=== PATIENT | female | born 1990 | race American Indian/Alaskan Native ===

== ENCOUNTER 2020-03-04 09:26 | Emergency (ER) | payer MEDICAID ==
[2020-03-04 09:33] VITALS: BP 122/70
[2020-03-04 10:14] LABS: Basophils % (Auto) 0.5 % (0.0-1.8); Eosinophils # (Auto) 0.1 K/mm3 (0.0-0.4); Eosinophils % (Auto) 1.5 % (0.0-4.3); Hematocrit 36.2 % (30.3-42.9); Hemoglobin 11.7 gm/dl (10.1-14.3); Lymphocytes # (Auto) 2.1 K/mm3 (1.2-5.4); Lymphocytes % (Auto) 35.8 % (13.4-35.0); Mean Corpuscular HGB Conc 32 % (30-34); Mean Corpuscular Volume 84 fl (79-97); Monocytes # (Auto) 0.5 K/mm3 (0.0-0.8); Monocytes % (Auto) 7.8 % (0.0-7.3); Platelet Count 285 K/mm3 (140-440); Red Blood Count 4.34 M/mm3 (3.65-5.03); Red Cell Distribution Width 16.3 % (13.2-15.2)
[2020-03-04 10:37] LABS: Bilirubin,Urine NEG (Negative); Blood,Urine NEG (Negative); Color,Urine Yellow (Yellow); Mucus,Urine 2+ /HPF; Protein,Urine <15 mg/dL mg/dL (Negative); Urobilinogen,Urine < 2.0 mg/dL (<2.0)
[2020-03-04 10:38] LABS: WBC,Urine < 1.0 /HPF (0.0-6.0)
--- NOTE | 2020-03-04 11:38 | Ultrasound Report ---
US OB <= 14 weeks fetus, US OB transvaginal INDICATION / CLINICAL INFORMATION: Vaginal bleeding pain. COMPARISON: None available. FINDINGS: Transabdominal and transvaginal imaging was performed. Uterus measures 9.2 x 4.9 x 5.1 cm. There is a tiny anechoic focus, likely a gestational sac, in the endometrial cavity with mean diameter of 3.1 cm (5 weeks, 0 days). No pole or yolk sac is seen. Right ovary is unremarkable. There is a mildly complex 2.2 cm left ovarian lesion. This could be a co rpus luteal cyst. No adnexal lesions are seen. No free fluid is seen. IMPRESSION: 1. Small fluid collection within the endometrial cavity could be an early gestational sac. No yolk sa c or pole is identified. No adnexal lesions are seen. Correlation with serial beta hCG levels a nd short-term follow-up is recommended. Signer Name: Zachary Almaraz MD Signed: 03/04/2020 11:33 AM Workstation Name: [id number]
--- NOTE | 2020-03-04 12:20 | Emergency Department Report ---
ED Female HPI - General Chief complaint: Vaginal Bleeding Stated complaint: 10WKS PREG, BLEEDING Time Seen by Provider: 03/04/20 10:45 Source: patient Mode of arrival: Ambulatory Limitations: No Limitations - History of Present Illness Initial comments: 21-year-old G3, P2 female presents emergency department complaining of vaginal bleeding that started this morning while at work around 6:30 AM after lifting some heavy items. States she had a positive home test sometime ago and not had a period since sometime in January and she is also not yet seen an [facility] but wanted to be evaluated to ensure that her was in good health. She reports having some pelvic cramping which radiates to her back as well she is only utilize 1 pad today today reports no chest pain no shortness of breath no fever chills or sweats. No direct abdominal trauma MD Complaint: vaginal bleeding, pelvic pain -: Gradual - Related Data Allergies Allergy/AdvReac Type Severity Reaction Status Date / Time No Known Allergies Allergy Verified 03/04/20 09:29 ED Review of Systems ROS: Stated complaint: 10WKS PREG, BLEEDING Other details as noted in HPI Comment: All other systems reviewed and negative ED Past Medical Hx - Past Medical History Previous Medical History?: No - Surgical History Past Surgical History?: No - Social History Smoking Status: Never Smoker Substance Use Type: None ED Physical Exam - General Limitations: No Limitations General appearance: alert, in no apparent distress - Head Head exam: Present: atraumatic, normocephalic - Eye Eye exam: Present: normal appearance - ENT ENT exam: Present: mucous membranes moist - Neck Neck exam: Present: normal inspection - Respiratory Respiratory exam: Present: normal lung sounds bilaterally. Absent: respiratory distress, wheezes, rales, chest wall tenderness, accessory muscle use - Cardiovascular Cardiovascular Exam: Present: regular rate, normal rhythm. Absent: systolic murmur, diastolic murmur, rubs, gallop - GI/Abdominal GI/Abdominal exam: Present: soft, tenderness (To the pelvic area), normal bowel sounds. Absent: guarding, rebound, rigid - Extremities Exam Extremities exam: Present: normal inspection, normal capillary refill - Back Exam Back exam: Present: normal inspection. Absent: CVA tenderness (R), CVA tenderness (L) - Neurological Exam Neurological exam: Present: alert, oriented X3, CN II-XII intact, normal gait - Psychiatric Psychiatric exam: Present: normal affect, normal mood - Skin Skin exam: Present: warm, dry, intact, normal color. Absent: rash ED Course Vital Signs 03/04/20 09:29 Temperature 97.9 F Pulse Rate 60 Respiratory 18 Rate Blood Pressure 122/70 [Right] O2 Sat by Pulse 100 Oximetry ED Medical Decision Making - Lab Data Result diagrams: 03/04/20 09:40 - Medical Decision Making This patient presents with vaginal bleeding in the first trimester, differential diagnosis includes ectopic , IUP, month threatened/inevitable , along with a completed . Patient is HDS and without a history of coagulopathy or infectious symptoms. The ultrasound does reveal an IUP with an elevated hCG quant Based on exam history and ED work-up patient presentation is not consistent with an ectopic , life-threatening coagulopathy, trauma, serious bacterial infection, central process or other emergency Critical care attestation.: If time is entered above; I have spent that time in minutes in the direct care of this critically ill patient, excluding procedure time. ED Disposition Clinical Impression: Threatened miscarriage Disposition: DC-01 TO HOME OR SELFCARE Is pt being admited?: No Does the pt Need Aspirin: No Condition: Stable Instructions: Threatened Miscarriage (ED) Additional Instructions: Please follow-up in 3 to 7 days for reevaluation of your hCG which is currently little less than 500 Referrals: PRIMARY CARE [Primary Care Provider] - 3-5 Days [facility] [Provider Group] - 3-5 Days
== END 2020-03-04 12:38 | disposition home or self-care (01) ==
LOC: ED 09:26
DX: O20.0 Threatened abortion (principal); Z3A.10 10 weeks gestation of pregnancy
CPT/HCPCS: 36415; 76801; 76817; 81001; 84702; 85025; 86900; 86901